=== PATIENT | female | born 1995 | race American Indian/Alaskan Native ===

== ENCOUNTER 2022-04-03 20:19 | Emergency (ER) ==
[~2022-04-03] VITALS: Ht 154.9 cm; Wt 118.2 kg
== END 2022-04-03 20:37 | disposition left against medical advice (07) ==
LOC: COL.ER 20:19
DX: R29.818 Other symptoms and signs involving the nervous system (principal); E58 Dietary calcium deficiency; Z28.311 Partially vaccinated for COVID-19

== ENCOUNTER → 2022-05-17 | Outpatient (CLI) | payer MEDICAID | LOC: COL.RAD 08:15 | DX: Q07.00 Arnold-Chiari syndrome without spina bifida or hydrocephalus (principal) | CPT/HCPCS: A9575 ==

== ENCOUNTER 2022-11-12 12:19 | Observation (INO) | payer MEDICAID ==
[~2022-11-12] VITALS: Wt 104.5 kg
[2022-11-12 14:34] LABS: COLLECTION METHOD CLEAN CATCH
[2022-11-12 14:45] LABS: MUCOUS Present (NOT PRESENT); SQUAMOUS EPITHELIAL 0-2 /hpf (0-10); URINE BACTERIA None Seen /hpf (NONE SEEN)
[2022-11-12 14:50] LABS: PH 6.5 (5-8); URINE APPEARANCE Hazy (CLEAR/HAZY); URINE COLOR Yellow (YELLOW); URINE GLUCOSE Negative (NEGATIVE); URINE KETONE Negative (NEGATIVE); URINE PROTEIN(semi-quant) 2+ (NEGATIVE)
[2022-11-12 14:51] LABS: URINE BLOOD TRACE-INTACT (NEGATIVE); URINE NITRATE Negative (NEGATIVE); URINE UROBILINOGEN 0.2 (NEGATIVE)
[2022-11-12 14:54] LABS: ALBUMIN 3.6 gm/dL (3.5-5.0); BILIRUBIN,TOTAL 0.3 mg/dL (0.2-1.2); CREATININE, serum 2.12 mg/dL (0.57-1.11); POTASSIUM 3.9 mmol/L (3.5-4.5); TOTAL PROTEIN 7.9 gm/dL (6.2-8.1)
[2022-11-12 14:58] LABS: CALCIUM 16.2 mg/dL (8.4-10.2)
[2022-11-12 15:17] LABS: BASO % 0.3 % (0.0-2.0); EOS # 0.3 K/mm3 (0.0-0.7); EOS % 4.6 % (0.0-4.0); GRAN # 3.5 K/mm3 (1.4-6.5); GRAN % 59.4 % (42.2-75.2); LYMPH # 1.5 K/mm3 (1.2-3.4); MEAN CELL VOLUME 84 fl (80.0-100.0); MEAN CORPUSCULAR HEMOGLOBIN 28 pg (27-31); MEAN CORPUSCULAR HGB CONC 33 g/dl (33.0-37.0); MEAN PLATELET VOLUME 9.8 fl (7.4-10.4); MONO # 0.6 K/mm3 (0.1-0.6); MONO % 10.5 % (1.7-9.3); PLATELET COUNT 74 K/mm3 (130-400); RED BLOOD COUNT 4.34 M/mm3 (4.10-5.30); REDCELL DISTRIBUTION WIDTH-CV 15.4 % (11.5-14.5)
[2022-11-12 15:28] LABS: HEMATOCRIT 36.3 % (37.0-47.0)
[2022-11-12] MEDS ORDERED: [UNRECOGNIZED DRUG - CODE] (19:44)
[2022-11-12] MEDS ORDERED: COGENTIN 1MG1 MG/TAB PO (19:44)
[2022-11-12] MEDS ORDERED: DEPAKOTE500 MG PO (19:44)
[2022-11-12] MEDS ORDERED: INDERAL 10MG10 MG PO (19:44)
[2022-11-12] MEDS ORDERED: DESYREL 100MG100 MG PO (19:44)
[2022-11-12] MEDS ORDERED: VITAMIN D250 MCG PO (19:45)
[2022-11-12] MEDS ORDERED: ZOLOFT 100MG100 MG PO (19:45)
[2022-11-12] MEDS ORDERED: ATIVAN 1MG T1 MG/TAB PO (19:46)
[2022-11-12] MEDS ORDERED: ROCALTROL0.5 MCG PO (19:46)
[2022-11-12 20:53] VITALS: BP 144/79; PULSE 65; TEMP 97.9
[2022-11-12 23:30] VITALS: BP 138/80; PULSE 73; TEMP 98.1
--- NOTE | 2022-11-13 00:50 | NUR ---
Lab called with calcium levels of 13.8 at 2340. MARTIN Dee was notified at 0050. No new orders received.
[2022-11-13 03:35] VITALS: BP 113/60; PULSE 70; TEMP 98.4
--- NOTE | 2022-11-13 03:41 | NUR ---
THE PATIENT ARRIVED FROM THE ED ACCOMPANIED BY ED STAFF. THE PATIENT'S MOTHER WAS ALSO WITH HER. THE MOTHER LEFT BEFORE ALL ADMISSION QUESTIONS COULD BE ANSWERED. THE ADMISSION QUESTION ANSWERS CAME FROM THE H&P AND OTHER NOTES. THE PATIENT WAS ALERT AND SIMPLY ORINETED. THE PATIENT DOES HAVE DEVELOPMENTAL DISABILITIES SO SHE WAS UNABLE TO ANSWER THE ADMISSION QUESTIONS OR HELP TO COMPLETE THE MED REC. THE PATIENT DID DEMONSTRATE THE PROPER USE OF THE CALL LIGHT. THE PATIENT IS A FALL RISK AND HAS THE ARM BAND ON AND OTHER FALL RISK REQUIRED ITEMS IN PLACE. BED IN LOW POSITION, PERSONAL ITEMS WITHIN REACH, CALL LIGHT WITHIN REACH. WILL MONITOR.
[2022-11-13 06:57] LABS: BASO % 0.4 % (0.0-2.0); EOS # 0.3 K/mm3 (0.0-0.7); EOS % 5.6 % (0.0-4.0); GRAN # 2.7 K/mm3 (1.4-6.5); GRAN % 49.7 % (42.2-75.2); HEMOGLOBIN 10.9 g/dl (12.5-16.0); LYMPH # 1.8 K/mm3 (1.2-3.4); LYMPH % 32.9 % (20.0-51.0); MEAN CELL VOLUME 85 fl (80.0-100.0); MEAN CORPUSCULAR HEMOGLOBIN 28 pg (27-31); MEAN CORPUSCULAR HGB CONC 33 g/dl (33.0-37.0); MONO # 0.6 K/mm3 (0.1-0.6); PLATELET COUNT 71 K/mm3 (130-400); REDCELL DISTRIBUTION WIDTH-CV 15.7 % (11.5-14.5)
[2022-11-13 06:59] LABS: HEMATOCRIT 33.1 % (37.0-47.0)
[2022-11-13 07:12] LABS: CALCIUM 12.1 mg/dL (8.4-10.2); CREATININE, serum 1.84 mg/dL (0.57-1.11); MAGNESIUM 1.9 mg/dL (1.6-2.6); POTASSIUM 3.6 mmol/L (3.5-4.5)
[2022-11-13 07:39] VITALS: BP 108/82; PULSE 72; TEMP 98
--- NOTE | 2022-11-13 08:00 | NUR ---
Patient sleeping in bed, easily awakened with verbal command. A&O, underlying MR. OH. IV CDI, fluids infusing. Denies pain and discomfort. No further needs expressed. Call light within reach. Bed alarm on
[2022-11-13 11:32] VITALS: BP 130/64; PULSE 85; TEMP 97.3
[2022-11-13 15:26] VITALS: BP 134/71; PULSE 71; TEMP 98.4
[2022-11-13 16:51] LABS: CALCIUM 11.4 mg/dL (8.4-10.2); CREATININE, serum 1.77 mg/dL (0.57-1.11)
[2022-11-13 19:44] VITALS: BP 128/73; PULSE 68; TEMP 97.8
[2022-11-13 23:05] VITALS: BP 130/73; PULSE 83; TEMP 98.1
--- NOTE | 2022-11-14 01:36 | NUR ---
NURSING SHIFT ASSESSMENT COMPLETED. THE PATIENT HAS DEVELOPMENTAL DISABILITIES AND IS CALM AND PLEASANT. THE PATIENT WAS ASSISTED TO THE REST ROOM AND VOIDED WITHOUT DIFFICULTY. TYLENOL PROVIDED AT END OF DAY SHIFT FOR LEFT ARM PAIN. THE PATIENT DENIES PAIN AT THIS TIME. CALL LIGHT USE TAUGHT. BED ALARM ON. CALL LIGHT WITHIN REACH WELL PERSONAL BELONGINGS. BED IN LOW POSITION. WILL MONITOR.
[2022-11-14 03:57] VITALS: BP 106/87; PULSE 66; TEMP 97.4
[2022-11-14 07:29] LABS: CALCIUM 10.1 mg/dL (8.4-10.2); CREATININE, serum 1.68 mg/dL (0.57-1.11); POTASSIUM 3.8 mmol/L (3.5-4.5)
[2022-11-14 07:41] VITALS: BP 115/53; PULSE 76; TEMP 98.2
[2022-11-14 08:08] LABS: BASO % 0.4 % (0.0-2.0); EOS # 0.3 K/mm3 (0.0-0.7); EOS % 5.8 % (0.0-4.0); GRAN # 2.1 K/mm3 (1.4-6.5); GRAN % 40.8 % (42.2-75.2); HEMOGLOBIN 10.6 g/dl (12.5-16.0); LYMPH # 2.2 K/mm3 (1.2-3.4); LYMPH % 44.1 % (20.0-51.0); MEAN CELL VOLUME 86 fl (80.0-100.0); MEAN CORPUSCULAR HEMOGLOBIN 28 pg (27-31); MEAN CORPUSCULAR HGB CONC 32 g/dl (33.0-37.0); MEAN PLATELET VOLUME 10.6 fl (7.4-10.4); MONO # 0.4 K/mm3 (0.1-0.6); MONO % 8.3 % (1.7-9.3); PLATELET COUNT 72 K/mm3 (130-400); REDCELL DISTRIBUTION WIDTH-CV 15.7 % (11.5-14.5)
[2022-11-14 08:09] LABS: HEMATOCRIT 32.7 % (37.0-47.0)
--- NOTE | 2022-11-14 08:25 | NUR ---
Shift assessment is completed. Patient is resting on bed quietly. This nurse assited to bathroom and she voided without difficulty. Patient denies any pain or discomfort at this time. Bed alarm is on, call light is on place, and bed is on lowest position.
--- NOTE | 2022-11-14 09:59 | NUR ---
Sprinkler Inspector met with PAtient and her mother, Yen P: [phone] whom is her primary caregiver due to her DiGeorge Syndrome and intelectual disability. Patient and her mother are currently living with her elder brother in [place], [place] and is established with PCP. Rhianna stated that she uses [facility] for pharmacy use due to the lesser copay. Rhianna denies the use of O2, DME, and home mealth services for Patient prior to admission. Patient needs assistance with ADLs/IADLs though Rhianna supports independence with clothing when Patient is able to complete the task herself. PAtient is to discharge home. Discharge Plan: Home
[2022-11-14] MEDS ORDERED: OSCAL 500 TAB500 MG PO (14:40)
[2022-11-14 15:10] VITALS: BP 154/100; PULSE 67; TEMP 98.5
--- NOTE | 2022-11-14 16:13 | NUR ---
PATIENT IS DISCHARGED [id number] TO GO HOME WITH HER MOM. IV IS DISCONTINUED AND WAS INTACT AT REMOVAL. WENT THROUGH ALL DISCHARGED PAPERWORK INCLUDING UPCOMMING APPOINTMENTS, MEDICATION DISCONTINUATION/CHANGES, AND EDUCATION. PATIENT IS ASSISTED TO TRANSFER TO HER VEHICLE BY [facility] STAFF VIA WHEELCHAIR.
== END 2022-11-14 16:13 | disposition home or self-care (01) ==
LOC: COL.ER 12:19 → MEDICAL 19:04
PROVIDERS: Emergency Medicine; Physician Assistant; Student in an Organized Health Care Education/Training Program; ADMIT Student in an Organized Health Care Education/Training Program
DX: E83.52 Hypercalcemia (principal); D69.6 Thrombocytopenia, unspecified; D64.9 Anemia, unspecified; D82.1 Di George's syndrome; E83.51 Hypocalcemia; Z86.16 Personal history of COVID-19; F79 Unspecified intellectual disabilities; F91.8 Other conduct disorders; F29 Unspecified psychosis not due to a substance or known physiological condition; F32.A Depression, unspecified; F41.9 Anxiety disorder, unspecified; Z91.51 Personal history of suicidal behavior
CPT/HCPCS: G0378; J1940; J7030; Q9967